=== PATIENT | male | born 1975 | race Caucasian/White ===

== ENCOUNTER 2016-05-20 11:32 | Day surgery (SDC) | payer BC ==
--- NOTE | ~2016-05-20 | EGD ---
EGD REPORT [facility] [address] [address] NAME: DAMION ANDINO : [birth year] STATUS : REG [facility]#: [id number] AGE: 41 ADM/REG DATE : 05/20/16 MR#: [id number] REPORT SERV DATE: 05/20/16 DICTATED BY: RONALDO WEEKS DATE: 05/20/16 REPORT STATUS : Draft [facility]ANS[facility]IBED [facility]: [facility] DATE: 05/20/16 [facility] Patient Name: Damion Andino Date of : 1975 Attending MD: RONALDO WEEKS, Procedure Date No Time: 05/20/2016 Procedure: Upper EUS Indications: Celiac plexus block for pain secondary to chronic abdominal pain Referring MD: Blanca Lin Medicines: Monitored Anesthesia Care Complications: No immediate complications. Estimated blood loss: None. Procedure: Pre-Anesthesia Assessment: - ASA Grade Assessment: II - A patient with mild systemic disease. After obtaining informed consent, the endoscope was passed under direct vision. Throughout the procedure, the patient's blood pressure, pulse, and oxygen saturations were monitored continuously. The Endoscope was introduced through the mouth, and advanced to the duodenal bulb. Findings: Endosonographic Finding : The region of the celiac plexus and celiac ganglia was visualized and showed no sign of significant endosonographic abnormality. The vascular anatomy of the region was normal. Celiac plexus block was performed. The region of the celiac plexus and celiac ganglia was identified endosonographically with Color Doppler imaging, using the take-off of the celiac trunk from the anterior aspect of the aorta as the main anatomical landmark. Color Doppler guidance was also used to confirm a lack of significant vascular structures within the injection needle path. Using a transgastric approach, a 22 gauge needle was advanced to the area of the celiac plexus. Needle aspiration was performed prior to injection to exclude entry into a blood vessel. A total of 10 mL of 0.75% bupivacaine and 80 mg of triamcinolone (80 mg/mL) were injected for the celiac plexus block. The needle was then withdrawn. Impression: - Celiac plexus block performed. Recommendation: - Return to previous diet. - Continue present medications. - Cipro (ciprofloxacin) 500 mg PO BID for 3 days. Procedure Code(s): --- Professional --- EGD REPORT [address] [address] NAME: DAMION ANDINO : [birth year] STATUS : REG [facility]#: [id number] AGE: 41 ADM/REG DATE : 05/20/16 MR#: [id number] REPORT SERV DATE: 05/20/16 DICTATED BY: RONALDO WEEKS DATE: 05/20/16 REPORT STATUS : Draft TRANSCRIBED BY: [employer] DATE: 05/20/16 [id number], Esophagogastroduodenoscopy, flexible, transoral; with transendoscopic ultrasound-guided transmural injection of diagnostic or therapeutic substance(s) (eg, anesthetic, neurolytic agent) or fiducial marker(s) (includes endoscopic ultrasound examination of the esophagus, stomach, and either the duodenum or a surgically altered stomach where the jejunum is examined distal to the anastomosis) Diagnosis Code(s): --- Professional --- K86.1, Other chronic pancreatitis CPT copyright 2013 [employer]. All rights reserved. The codes documented in this report are preliminary and upon mortgage processor review may be revised to meet current compliance requirements. RONALDO WEEKS, 05/20/2016 1:10 PM Number of Addenda: 0 Note Initiated On: 05/20/2016 12:49 PM [address] [id number]
[~2016-05-20 11:32] MED LIST: BENTYL10 PO; CYMBALTA20 PO; FISH-EPA1000 MG PO; HYZAAR1 TAB PO; IB GUARD; LINZESS 290 M290 MCG PO; SUCR PO; TESTOST ENA200 MG/ML IM; ULTRAM50 PO; VALIUM10 MG PO; VITE1000 PO; [UNRECOGNIZED DRUG - REMARK]
[2016-05-20 12:23] LABS: ALBUMIN 3.4 G/DL (3.5-5.0); BUN (BLOOD UREA NITROGEN) 13 MG/DL (6-23); CALCIUM, SERUM 8.4 MG/DL (8.5-10.4); CHLORIDE, SERUM 105 MMOL/L (96-112); CO2 (CARBON DIOXIDE) 27 MMOL/L (24-34); CREATININE 1.09 MG/DL (0.70-1.30); DIRECT BILIRUBIN 0.1 MG/DL (0.0-0.4); GFR AFRICAN AMERICAN 98 ML/MIN (>=60); GFR NON AFRICAN AMERICAN 84 ML/MIN (>=60); GLUCOSE, SERUM 93 MG/DL (60-99); INDIRECT BILIRUBIN(NOT ORDER) 0.8 MG/DL (0.1-0.9); POTASSIUM, SERUM 3.9 MMOL/L (3.5-5.3); SGOT(AST) 51 U/L (5-40); SGPT(ALT) 133 U/L (5-65); SODIUM, SERUM 141 MMOL/L (135-148); TOTAL BILIRUBIN 0.9 MG/DL (0-1.2); TOTAL PROTEIN 6.4 G/DL (6.0-8.5)
[2016-05-20 12:25] LABS: ALKALINE PHOSPHATASE 121 U/L (45-117)
== END 2016-05-20 23:59 | disposition home or self-care (01) ==
LOC: DMU 11:32
PROVIDERS: Anesthesiology; Internal Medicine Gastroenterology
PROC: 3E0T3BZ Introduction of Anesthetic Agent into Peripheral Nerves and Plexi, Percutaneous Approach (ICD-10-PCS; principal; 2016-05-20 13:00)
DX: K86.1 Other chronic pancreatitis (principal); I10 Essential (primary) hypertension; Z79.899 Other long term (current) drug therapy; Z79.891 Long term (current) use of opiate analgesic; Z88.8 Allergy status to other drugs, medicaments and biological substances; Z91.040 Latex allergy status
CPT/HCPCS: 80048; 80076; J1956; J3301

== ENCOUNTER 2016-06-03 11:53 | Day surgery (SDC) | payer BC ==
--- NOTE | ~2016-06-03 | EGD ---
EGD REPORT [facility] [address] [address] NAME: DAMION ANDINO : [birth year] STATUS : REG [facility]#: [id number] AGE: 41 ADM/REG DATE : 06/03/16 MR#: [id number] REPORT SERV DATE: 06/03/16 DICTATED BY: RONALDO WEEKS DATE: 06/03/16 REPORT STATUS : Draft [facility]: [facility] DATE: 06/03/16 [facility] Patient Name: Damion Andino Date of : 1975 Attending MD: RONALDO WEEKS, Procedure Date No Time: 06/03/2016 Procedure: Upper EUS Indications: Celiac plexus block for pain. Referring MD: Blanca Lin Medicines: Monitored Anesthesia Care Complications: No immediate complications. Estimated blood loss: None. Procedure: Pre-Anesthesia Assessment: - ASA Grade Assessment: II - A patient with mild systemic disease. After obtaining informed consent, the endoscope was passed under direct vision. Throughout the procedure, the patient's blood pressure, pulse, and oxygen saturations were monitored continuously. The Endoscope was introduced through the mouth, and advanced to the second part of duodenum. Findings: Endosonographic Finding : The region of the celiac plexus and celiac ganglia was visualized and showed no sign of significant endosonographic abnormality. The vascular anatomy of the region was normal. Celiac plexus block was performed. The region of the celiac plexus and celiac ganglia was identified endosonographically with Color Doppler imaging, using the take-off of the celiac trunk from the anterior aspect of the aorta as the main anatomical landmark. Color Doppler guidance was also used to confirm a lack of significant vascular structures within the injection needle path. Using a transgastric approach, a 22 gauge needle was advanced to the area of the celiac plexus. Needle aspiration was performed prior to injection to exclude entry into a blood vessel. A total of 10 mL of 0.75% bupivacaine and 80 mg of triamcinolone (40 mg/mL) were injected for the celiac plexus block. The needle was then withdrawn. Impression: - Celiac plexus block performed. Recommendation: - Return to previous diet. - Continue present medications. - Cipro (ciprofloxacin) 500 mg PO BID for 2 days. Procedure Code(s): --- Professional --- 84928, Esophagogastroduodenoscopy, flexible, transoral; EGD REPORT [address] [address] NAME: DAMION ANDINO : [birth year] STATUS : REG [facility]#: [id number] AGE: 41 ADM/REG DATE : 06/03/16 MR#: [id number] REPORT SERV DATE: 06/03/16 DICTATED BY: RONALDO WEEKS DATE: 06/03/16 REPORT STATUS : Draft TRANSCRIBED BY: [employer] DATE: 06/03/16 with transendoscopic ultrasound-guided transmural injection of diagnostic or therapeutic substance(s) (eg, anesthetic, neurolytic agent) or fiducial marker(s) (includes endoscopic ultrasound examination of the esophagus, stomach, and either the duodenum or a surgically altered stomach where the jejunum is examined distal to the anastomosis) Diagnosis Code(s): --- Professional --- K86.1, Other chronic pancreatitis CPT copyright 2013 [employer]. All rights reserved. The codes documented in this report are preliminary and upon pharmacognosist review may be revised to meet current compliance requirements. RONALDO WEEKS 06/03/2016 1:50 PM Number of Addenda: 0 Note Initiated On: 06/03/2016 1:29 PM Scope Withdrawal Time 0 hours 0 minutes 0 seconds [address] [id number]
[2016-06-03 12:30] LABS: BUN (BLOOD UREA NITROGEN) 13 MG/DL (6-23); CALCIUM, SERUM 8.5 MG/DL (8.5-10.4); CHLORIDE, SERUM 107 MMOL/L (96-112); CO2 (CARBON DIOXIDE) 29 MMOL/L (24-34); CREATININE 1.05 MG/DL (0.70-1.30); GFR AFRICAN AMERICAN 102 ML/MIN (>=60); GFR NON AFRICAN AMERICAN 88 ML/MIN (>=60); GLUCOSE, SERUM 89 MG/DL (60-99); POTASSIUM, SERUM 4.3 MMOL/L (3.5-5.3); SODIUM, SERUM 142 MMOL/L (135-148)
[2016-06-03 12:39] LABS: ALBUMIN 3.5 G/DL (3.5-5.0); DIRECT BILIRUBIN 0.1 MG/DL (0.0-0.4); INDIRECT BILIRUBIN(NOT ORDER) 0.4 MG/DL (0.1-0.9); TOTAL BILIRUBIN 0.5 MG/DL (0-1.2); TOTAL PROTEIN 6.3 G/DL (6.0-8.5)
== END 2016-06-03 23:59 | disposition home or self-care (01) ==
LOC: DMU 11:53
PROVIDERS: Anesthesiology; Internal Medicine Gastroenterology
PROC: 3E0G8GC Introduction of Other Therapeutic Substance into Upper GI, Via Natural or Artificial Opening Endoscopic (ICD-10-PCS; principal; 2016-06-03 14:00)
PROC: BD47ZZZ Ultrasonography of Gastrointestinal Tract (ICD-10-PCS; 2016-06-03 14:00)
DX: G89.29 Other chronic pain (principal); K86.1 Other chronic pancreatitis; K58.9 Irritable bowel syndrome, unspecified; D47.2 Monoclonal gammopathy; G43.909 Migraine, unspecified, not intractable, without status migrainosus; E78.00 Pure hypercholesterolemia, unspecified; D64.9 Anemia, unspecified; I10 Essential (primary) hypertension; Z91.040 Latex allergy status; Z88.8 Allergy status to other drugs, medicaments and biological substances; Z79.899 Other long term (current) drug therapy; Z90.49 Acquired absence of other specified parts of digestive tract; Z87.442 Personal history of urinary calculi; Z98.890 Other specified postprocedural states
CPT/HCPCS: 80048; 80076; C1725; J1956; J3301